=== PATIENT | female | born 1985 | race Caucasian/White ===

== ENCOUNTER 2023-08-12 07:54 | Emergency (ER) | payer MEDICAID, SELFPAY ==
[2023-08-12 08:04] VITALS: BP 141/109; PULSE 81; RESP 16; TEMP 36.6; O2SAT 97
--- NOTE | 2023-08-12 08:23 | XR_ITS ---
WS: [id number] [id number] REASON FOR EXAM: pain FINDINGS: The right humerus is intact without fracture. No periosteal reaction or focal bone lesion. No soft tissue abnormality. XR/[place] [id number] IMPRESSION: No significant abnormality of the humerus.
--- NOTE | 2023-08-12 08:23 | XR_ITS ---
WS: [id number] XR shoulder RT min 2V* [id number] REASON FOR EXAM: pain FINDINGS: Due to patient body habitus the images are not diagnostically optimal. No fracture or focal bone lesion. No periosteal reaction. Acromioclavicular joint is intact with minimal subchondral sclerosis. Glenohumeral joint is intact. No significant abnormality of the humeral head or glenoid identified. The scapula appears normal. Normal right clavicle. XR/XR shoulder RT min 2V* [id number] IMPRESSION: No acute abnormality identified.
--- NOTE | 2023-08-12 08:48 | W.ED.EXTPRO ---
HPI - Extremity Problem General: Chief complaint: Extremity Injury, Upper Stated complaint: Right arm pain Time Seen by Provider: 08/12/23 08:22 Source: patient Mode of arrival: ambulatory Limitations: no limitations History of Present Illness: Patient is a 37-year-old female presents to ED today with a complaint of right upper extremity pain. Patient states approximately 3 days ago she was at [employer] and was swimming and then later that day was loading/ chucking wood. She states the following morning with pain to the right shoulder but also complains that her whole right upper extremity hurts. Patient reports several previous injuries to the right shoulder over the years. She has not noticed any numbness or tingling or loss of sensation to the arm. She has not noticed any edema. No color/temperature changes. Pain is significantly worse with any range of motion of the shoulder. MD Complaint: extremity pain and joint pain Onset (ago): day(s) Pain Consistency: constant Location: right and upper extremity Radiation: none Relieving factors: nothing Exacerbating factors: range of motion Associated symptoms: Reports no associated symptoms; Deny chest pain, fever(s) or rash Review of Systems Const: Denies: fever(s), chills, body aches, fatigue or malaise Card: Denies: chest pain Resp: Denies: dyspnea Musc: Reports: extremity pain, joint pain and limited range of motion; Denies: neck pain, back pain, extremity swelling, joint swelling, joint redness or joint warmth Skin/Breast: Denies: rash Neuro: Denies: numbness in extremities, weakness in extremities or sensory changes Physical Exam Const: COMMON NORMALS: no acute distress, patient oriented x3, no limitations, alert and well nourished GENERAL APPEARANCE: cooperative NUTRITIONAL APPEARANCE: obese morbidly obese ORIENTATION/CONSCIOUSNESS: Yes awake, Yes oriented to person, Yes oriented to place and Yes oriented to time Neck/C-Spine: COMMON NORMALS: full ROM CERVICAL SPINE: No Cervical spine tenderness Resp: COMMON NORMALS: normal respiratory effort and clear to auscultation bilaterally AUSCULTATION: clear to auscultation bilaterally Cardio: COMMON NORMALS: regular rate and regular rhythm RATE: regular rate RHYTHM: regular rhythm Back/Pelvis: COMMON NORMALS: thoracic and lumbar spine normal to inspection Extremity: COMMON NORMALS: capillary refill normal, no joint enlargement and no clubbing, cyanosis or edema GENERAL: Yes normal exam except as noted RIGHT UPPER EXTREMITY: Yes shoulder joint OTHER: Diffuse tenderness throughout right upper extremity. She has no swelling to the extremity. Pulses throughout the extremity are easily palpable. She has normal cap refill. Normal sensation. Most of her pain seems to be centered to the right shoulder and has significant decreased range of motion secondary to pain. Neuro: COMMON NORMALS: patient oriented x3, moves all extremities, no focal motor deficits and no sensory deficits noted SENSORIUM/ORIENTATION: Yes alert, Yes oriented to person, Yes oriented to place and Yes oriented to time Skin: COMMON NORMALS: no rashes or lesions noted GENERAL SKIN EXAM: no rashes or lesions noted Course Vital Signs: Vital signs: Vital Signs Temperature 97.9 F 08/12/23 08:04 Pulse Rate 81 08/12/23 08:04 Respiratory Rate 16 08/12/23 08:04 Blood Pressure 141/109 08/12/23 08:04 Pulse Oximetry 97 08/12/23 08:04 MDM - Extremity (Nontraumatic) Medical Decision Making XRs negative. Extremity is NV intact. Recommend she start OTC NSAIDs and I will place her on steroids and muscle relaxers. Recommend follow-up with her primary care provider next week. Return ED precautions given. Medical Records I reviewed the patient's medical records. Lab Data Radiology Impressions Humerus X-Ray 08/12/23 08:23 IMPRESSION: No significant abnormality of the humerus. Shoulder X-Ray 08/12/23 08:23 IMPRESSION: No acute abnormality identified. All radiology interpretation(s) finalized by discharge Discharge Plan Discharge Patient Disposition: Home Clinical Impression: Injury of right shoulder Condition: Stable Prescriptions: New methocarbamol 500 mg tablet 1,000 mg PO Q8H Qty: 30 0RF prednisone 10 mg tablet 10 mg PO DAILY 6 Days Qty: 20 0RF Rx Instructions: Take 5 tabs on day 1-2, 4 tabs on day 3, 3 tabs on day 4, 2 tabs on day 5, and 1 tab on day 6 Discharge Orders: Discharge ED (Routine); Ordered 08/12/23 Ordered By: Kristal Acosta Referrals: Ashley Vegas MD [Primary Care Provider] - Activity Restrictions/Additional Instructions: As we discussed I would like you to steroids and a muscle relaxer prescribed in addition to [id number] Ibuprofen (can take 800 mg every 6-8 hours). Do not take any further Ibuprofen past Tuesday as you are scheduled for colonoscopy on Tuesday. As we discussed I would like you to follow-up with your primary care provider for further evaluation of your shoulder discomfort. Coding Level of Care Code ED Processor Helper for Martha Carrasquillo
[2023-08-12] MEDS: ketorolac 60 mg/2 mL INJ IM (09:30)
[2023-08-12] MEDS: dexamethasone 10 mg/mL INJ IM (09:31)
[2023-08-12 10:12] VITALS: PULSE 82; RESP 16; O2SAT 96
== END 2023-08-12 10:13 | disposition home or self-care (01) ==
PROVIDERS: Emergency Provider Physician Assistant; PCP Family Medicine
DX: S49.91XA Unspecified injury of right shoulder and upper arm, initial encounter (principal); X50.9XXA Other and unspecified overexertion or strenuous movements or postures, initial encounter
CPT/HCPCS: 73030; 73060; 96372; 99284; J1100; J1885

== ENCOUNTER → 2023-09-15 07:32 | Outpatient (CLI) | payer MEDICAID, SELFPAY ==
--- NOTE | 2023-09-15 07:33 | MR_ITS ---
WS: [id number] MRI RIGHT SHOULDER NONCONTRAST TECHNIQUE: Sagittal T2, coronal T1, T2 and proton density imaging. Axial gradient PDE imaging. CLINICAL INFORMATION: PAIN IN RIGHT SHOULDER COMPARISON: None. FINDINGS: Normal AC joint. Mild downsloping acromion with slight subacromial spurring. Mild narrowing of the jenkins bacromial space. Distal supraspinatus is normal. Normal infraspinatus. Normal teres minor. Subscapula ris is normal in appearance. Biceps tendon is somewhat diminutive but present within the bicipital gr oove. Normal bone marrow signal in the humerus and glenoid. Normal rotator interval. Normal visualized soft tissues. No significant joint effusion. No other acute findings. MR/MR shoulder RT wo con* [id number] IMPRESSION: 1. Mild downsloping acromion with slight subacromial spurring. Mild narrowing of the subacromial space. 2. Normal rotator cuff. 3. Somewhat diminutive biceps tendon appears present within the bicipital groo ve. 4. Normal bone marrow signal in the humerus and glenoid. No visualized fractur es. 5. No significant joint effusion. 6. No other acute findings.
== END | disposition home or self-care (01) ==
LOC: RAD 07:31
PROVIDERS: PCP Family Medicine; Visit Provider Family Medicine
DX: M25.511 Pain in right shoulder (principal); M89.8X1 Other specified disorders of bone, shoulder
CPT/HCPCS: 73221